=== PATIENT | female | born 1970 | race Caucasian/White ===

== ENCOUNTER 2024-09-27 15:23 | Outpatient (AMB) | payer OTHER, SELFPAY ==
--- NOTE | 2024-09-27 15:26 | MHC.OFFVIS ---
Intake Visit Reasons: 1 yr Allergies No Known Allergies Allergy (Verified 09/27/24 15:35) Medication List - Last Reconciled 09/27/24 by Svitlana Chambers CNP cetirizine (Zyrtec) 10 mg PO DAILY PRN dimethyl fumarate (Tecfidera) 240 mg PO BID mometasone 50 mcg/actuation (Nasonex 24hr Allergy) 2 sprays intranasal DAILY HPI Comments Details: She was doing okay. No new symptoms. She was doing okay with Tecfidera, occasional flushing. Energy was okay. Exercising and going for runs, up to 4-5 miles/day. Balance was okay, no falls. Sleep was okay. No significant headaches. Gets rare intermittent minor intermittent band of tightness around upper abdomen without any pattern or triggers. LE symptoms have resolved. No Lhermitte's sign. No UE symptoms. She has relapsing remitting multiple sclerosis and was on Rebif injections several years with no significant side effects and switched to Tecfidera in 2014, had some occasional flushing. Her cognitive functions are normal. She works full-time in IT. [facility] Medical History (Updated 09/27/24 @ 15:35 by Svitlana Chambers CNP) Migraine Multiple sclerosis Review of Systems Const Denies chills, Denies daytime sleepiness, Denies difficulty sleeping, Denies fatigue, Denies fever(s), Denies frequent falls, Denies headache(s), Denies increased appetite, Denies poor appetite, Denies snoring, Denies weakness, Denies weight gain and Denies weight loss Eyes Denies loss of vision ENT Denies vertigo, Denies dizziness, Denies headache(s) and Denies neck pain Card Denies chest pain at rest, Denies chest pain with activity, Denies syncope, Denies leg edema, Denies palpitations, Denies dyspnea and Denies dyspnea on exertion Resp Denies cough, Denies dyspnea, Denies dyspnea on exertion and Denies snoring GI Denies abdominal pain, Denies constipation, Denies heartburn, Denies diarrhea and Denies nausea Denies urinary frequency, Denies urinary incontinence and Denies urinary urgency Musc Denies abnormal gait, Denies back pain, Denies myalgias, Denies arthralgias, Denies neck pain, Denies numbness and Denies tingling Neuro Denies abnormal gait, Denies vertigo, Denies dizziness, Denies syncope, Denies frequent falls, Denies headache(s), Denies lack of coordination, Denies loss of vision, Denies memory loss, Denies numbness, Denies Other visual disturbances, Denies restless legs, Denies seizure-like activity, Denies tingling, Denies paresthesias, Denies tremor(s) and Denies weakness Psych Denies anxiety, Denies depression, Denies auditory hallucinations, Denies memory loss and Denies visual hallucinations Endo Denies fatigue and Denies palpitations Physical Exam Const Other: General Appearance:? normal, in no acute distress. Heart:? S1, S2 normal, no murmurs. Lungs:? clear anteriorly and posteriorly. Musculoskeletal:? normal. Extremities:? no edema. Psych:? alert, oriented, cognitive function intact, cooperative with exam. Neuro Other: Abnormal Neurological Findings:?Slightly brisk DTRs in LE. Normal vibration and position in feet. Mental Status: alert and oriented X 3. Normal attention, orientation, memory, and affect. Cranial Nerves: Pupils are equal, round, and reactive to light. External ocular muscles are intact. Visual lozano are full, no ptosis. Face is symmetrical, no facial weakness or droop. Facial sensations are normal. Tongue protrudes in midline. Palate elevates symmetrically. Shoulder shrugging is normal Motor Examination: As above, otherwise normal muscle tone, bulk and strength. No atrophy or fasciculations. No drift of the extended upper extremities. DTR 2+. Plantars are flexor. Sensory Exam: Normal light touch, temperature, pinprick, vibration, and joint-position sensations. Rhomberg sign is absent. Coordination: No ataxia. No titubation. [id number], cmdj-[id number] test, and rapid alternating movements were normal. Gait Exam: Within normal limits. Cerebellar Signs: Xahzrl-[id number] and eykk-da-nygh is normal. No dysdiadochokinesia. Extrapyramidal System: No tremor, rigidity with normal facial expressions. No bradykinesia. No bradyphrenia. Normal arm swing and posture. No propulsion or retropulsion. Speech: Normal. No dysphasia or dysarthria. Assessment & Plan Assessment & Plan (1) Multiple sclerosis: Code(s): G35 - Multiple sclerosis Category: Medical Plan: Continue Tecifera 240mg 1 capsule twice a day. It has been several years since last MRI was done and option for MRI was discussed. She was declining at this time, as condition has been stable for few years. No new or worsening symptoms at this time. She was advised to contact the office for any new/worsening symptoms, or if she would like to reconsider MRI. Medications: New dimethyl fumarate (Tecfidera) 240 mg PO BID 180 caps 3RF 90 days Discontinued dimethyl fumarate (Tecfidera) Discontinued Reason: Order 240 mg PO BID Coding Level of Care Code Est Pt Level 4 (92044) Diagnoses Multiple sclerosis G35
== END 2024-09-27 15:41 | disposition home or self-care (01) ==
LOC: HO.HSM 15:23
PROVIDERS: PCP Internal Medicine; Visit Provider Registered Nurse
DX: G35 Multiple sclerosis (principal)
CPT/HCPCS: 99213